=== PATIENT | male | born 1970 | race Caucasian/White ===

== ENCOUNTER 2016-09-27 09:37 | Emergency (ER) | payer MEDICARE, MEDICAID ==
[~2016-09-27] VITALS: Ht 177.8 cm; Wt 104.3 kg
[~2016-09-27 09:37] MED LIST: AMOX875T PO; CLON1TAB3 PO; CRESTOR20 MG PO; FENO135C2 PO; HYDR10TA2 PO; MECL25TA3 PO; METF-620 PO; PROAIR HFA8.5 GM IH; QUET400T6 PO; VALS160T3 PO
[2016-09-27] MEDS ORDERED: ONDANSETRON PF 4 MG/2 ML VIAL. IV ONE (10:30)
[2016-09-27] MEDS ORDERED: IV NORMAL SALINE 1000ML BAG 1,000 ML IV SCH (10:30)
[2016-09-27] MEDS ORDERED: FAMOTIDINE 20 MG/2 ML VIAL IVP ONE (10:30)
[2016-09-27 10:35] LABS: BILIRUBIN,URINE NEGATIVE (NEG); GLUCOSE,URINE NEGATIVE (NEG); NITRITE,URINE NEGATIVE (NEG); PROTEIN,URINE NEGATIVE (NEG-TRACE); UROBILINOGEN,URINE 0.2 mg/dL (0.2 mg/dL)
[2016-09-27 10:40] LABS: BARBITURATES NEG (NEG); BENZODIAZEPINES POS (NEG); CANNABINOIDS NEG (NEG); COCAINE NEG (NEG); METHADONE NEG (NEG); OPIATES POS (NEG); PHENCYCLIDINE NEG (NEG)
[2016-09-27 10:42] LABS: BACTERIA,URINE 0 /HPF (0-FEW); RBC,URINE 0 /HPF (0-2); SQUAMOUS EPITHELIAL CELL,UR OCC /LPF; WBC,URINE 0 /HPF (0-4)
[2016-09-27 10:43] LABS: BASO # 0.1 x10^3/uL (0.0-0.2); BASO % 1 % (0-3); EOS % 3 % (0-3); HEMATOCRIT 42.4 % (39.0-53.0); HEMOGLOBIN 14.6 g/dL (13.0-17.5); LYMPH # 1.8 x10^3/uL (1.0-4.8); LYMPH % 22 % (24-48); MEAN CORPUSCULAR HEMOGLOBIN 30 pg (25-35); MEAN CORPUSCULAR HGB CONC 35 g/dL (31-37); MEAN CORPUSCULAR VOLUME 87 fL (79-100); MONO % 4 % (0-9); NEUT % 70 % (31-73); PLATELET COUNT 274 x10^3/uL (140-400); RED BLOOD COUNT 4.89 x10^6/uL (4.30-5.70); RED CELL DISTRIBUTION WIDTH 13.4 % (11.5-14.5); WHITE BLOOD COUNT 8.6 x10^3/uL (4.0-11.0)
[2016-09-27 10:49] LABS: PROTHROMBIN TIME PATIENT 12.4 SEC (11.7-14.0)
[2016-09-27 10:51] LABS: CALCIUM 9.1 mg/dL (8.5-10.1); CREATININE 1.1 mg/dL (0.7-1.3); GFR 72.4; POTASSIUM 3.4 mmol/L (3.5-5.1)
[2016-09-27 10:56] LABS: ALBUMIN 3.5 g/dL (3.4-5.0); TOTAL BILIRUBIN 0.2 mg/dL (0.2-1.0); TOTAL PROTEIN 6.9 g/dL (6.4-8.2)
[2016-09-27 11:15] LABS: CKMB MASS 1.9 ng/mL (0.0-3.6)
--- NOTE | 2016-09-27 11:15 | EKG ---
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
[2016-09-27 13:21] LABS: NEG OBC FOB NEG; POS OBC FOB POS
[2016-09-27 13:56] VITALS: BP 161/77
--- NOTE | 2016-09-27 13:57 | RAD ---
Indication: Right upper quadrant pain. The pancreas, aorta and IVC are unremarkable. The liver demonstrates diffuse increased echogenicity consistent with fatty infiltration. The liver is normal in size. No mass is identified. The gallbladder is without stones or sludge. No wall thickening or pericholecystic fluid is seen. No biliary ductal dilatation is identified. The spleen is normal in size and contains multiple granulomas. The kidneys are unremarkable. There is no ascites. Impression: Fatty infiltration of the liver. There is no evidence of cholelithiasis or acute cholecystitis.
--- NOTE | 2016-09-27 14:02 | PHYS DOC ---
Past Medical History Past Medical History: Anxiety, Asthma, Depression, Diabetes-Type II, High Cholesterol, Hypertension, Schizophrenia Additional Past Medical Histor: neuropathy Past Surgical History: No Surgical History Additional Past Surgical Histo: metal removed from finger Alcohol Use: None Drug Use: None Adult General Chief Complaint Chief Complaint: BLOODY STOOL HPI HPI Patient is a 46 year old male with history of diabetes type 2, hypertension, high cholesterol, asthma, depression, who presents today with intermittent episodes of blood in his stool for the last 6 months. Patient states the last time he had bloody stools was yesterday. He states today he had a normal bowel movement with no blood. Patient's also complaining of a slight right upper quadrant abdominal pain. Patient denies any nausea vomiting. Denies any chance he is constipated, he is a smoker. PCP is Dr. Galvez Review of Systems Review of Systems Constitutional: Denies fever or chills [] Eyes: Denies change in visual acuity, redness, or eye pain [] HENT: Denies nasal congestion or sore throat [] Respiratory: Denies cough or shortness of breath [] Cardiovascular: No additional information not addressed in HPI [] GI: Right upper quadrant abdominal pain, bloody stools diarrhea [] : Denies dysuria or hematuria [] Musculoskeletal: Denies back pain or joint pain [] Integument: Denies rash or skin lesions [] Neurologic: Denies headache, focal weakness or sensory changes [] Endocrine: Denies polyuria or polydipsia [] Current Medications Current Medications Current Medications Medications (Trade) Dose Ordered Sig/Sorin Start Time Stop Time Status Last Admin Dose Admin Famotidine (Pepcid) 20 mg 1X ONCE 09/27/16 10:30 09/27/16 10:31 DC 09/27/16 10:31 20 MG Ondansetron HCl (Zofran) 4 mg 1X ONCE 09/27/16 10:30 09/27/16 10:31 DC 09/27/16 10:30 4 MG Sodium Chloride 1,000 ml @ 100 mls/hr Q10H 09/27/16 10:30 09/27/16 14:24 DC 09/27/16 10:31 100 MLS/HR Allergies Allergies Allergies Coded Allergies Type Severity Reaction Last Updated Verified No Known Drug Allergies 06/14/15 No Physical Exam Physical Exam Constitutional: Well developed, well nourished, no acute distress, non-toxic appearance. [] HENT: Normocephalic, atraumatic, bilateral external ears normal, oropharynx moist, no oral exudates, nose normal. [] Eyes: PERRLA, EOMI, conjunctiva normal, no discharge. [] Neck: Normal range of motion, no tenderness, supple, no stridor. [] Cardiovascular:Heart rate regular rhythm, no murmur [] Lungs & Thorax: Bilateral breath sounds clear to auscultation [] Abdomen: Rounded abdomen. Bowel sounds normal, soft, no tenderness, no masses, no pulsatile masses. [] Rectal exam External rectum appears normal. No external or internal hemorrhoids noted. Skin: Warm, dry, no erythema, no rash. [] Back: No tenderness, no CVA tenderness. [] Extremities: No tenderness, no cyanosis, no clubbing, ROM intact, no edema. [] Neurologic: Alert and oriented X 3, normal motor function, normal sensory function, no focal deficits noted. [] Psychologic: Affect normal, judgement normal, mood normal. [] Current Patient Data Vital Signs Vital Signs Date Time Temp Pulse Resp B/P (MAP) Pulse Ox O2 Delivery O2 Flow Rate FiO2 09/27/16 13:56 70 20 161/77 (105) 91 09/27/16 11:26 Room Air 09/27/16 09:58 98.0 98.0 Lab Values Laboratory Tests Test 09/27/16 10:25 09/27/16 13:00 White Blood Count 8.6 x10^3/uL (4.0-11.0) Red Blood Count 4.89 x10^6/uL (4.30-5.70) Hemoglobin 14.6 g/dL (13.0-17.5) Hematocrit 42.4 % (39.0-53.0) Mean Corpuscular Volume 87 fL (79-100) Mean Corpuscular Hemoglobin 30 pg (25-35) Mean Corpuscular Hemoglobin Concent 35 g/dL (31-37) Red Cell Distribution Width 13.4 % (11.5-14.5) Platelet Count 274 x10^3/uL (140-400) Neutrophils (%) (Auto) 70 % (31-73) Lymphocytes (%) (Auto) 22 % (24-48) L Monocytes (%) (Auto) 4 % (0-9) Eosinophils (%) (Auto) 3 % (0-3) Basophils (%) (Auto) 1 % (0-3) Neutrophils # (Auto) 6.1 x10^3uL (1.8-7.7) Lymphocytes # (Auto) 1.8 x10^3/uL (1.0-4.8) Monocytes # (Auto) 0.3 x10^3/uL (0.0-1.1) Eosinophils # (Auto) 0.3 x10^3/uL (0.0-0.7) Basophils # (Auto) 0.1 x10^3/uL (0.0-0.2) Prothrombin Time 12.4 SEC (11.7-14.0) Prothrombin Time INR 1.0 (0.8-1.1) PTT 28 SEC (24-38) Urine Collection Type Unknown Urine Color Yellow Urine Clarity Clear Urine pH 6.0 Urine Specific [place] <=1.005 Urine Protein Negative mg/dL (NEG-TRACE) Urine Glucose (UA) Negative mg/dL (NEG) Urine Ketones (Stick) Negative mg/dL (NEG) Urine Blood Negative (NEG) Urine Nitrite Negative (NEG) Urine Bilirubin Negative (NEG) Urine Urobilinogen Dipstick 0.2 mg/dL (0.2 mg/dL) Urine Leukocyte Esterase Negative (NEG) Urine RBC 0 /HPF (0-2) Urine WBC 0 /HPF (0-4) Urine Squamous Epithelial Cells Occ /LPF Urine Bacteria 0 /HPF (0-FEW) Urine Mucus Slight /LPF Sodium Level 140 mmol/L (136-145) Potassium Level 3.4 mmol/L (3.5-5.1) L Chloride Level 104 mmol/L (98-107) Carbon Dioxide Level 27 mmol/L (21-32) Anion Gap 9 (6-14) Blood Urea Nitrogen 6 mg/dL (8-26) L Creatinine 1.1 mg/dL (0.7-1.3) Estimated GFR (Cockcroft-Gault) 72.4 BUN/Creatinine Ratio 5 (6-20) L Glucose Level 175 mg/dL (70-99) H Calcium Level 9.1 mg/dL (8.5-10.1) Total Bilirubin 0.2 mg/dL (0.2-1.0) Aspartate Amino Transferase (AST) 17 U/L (15-37) Alanine Aminotransferase (ALT) 34 U/L (16-63) Alkaline Phosphatase 79 U/L (46-116) Creatine Kinase 150 U/L (39-308) Creatine Kinase MB (Mass) 1.9 ng/mL (0.0-3.6) Creatine Kinase MB Relative Index 1.3 % (0-4) Troponin I Quantitative < 0.017 ng/mL (0.000-0.055) Total Protein 6.9 g/dL (6.4-8.2) Albumin 3.5 g/dL (3.4-5.0) Albumin/Globulin Ratio 1.0 (1.0-1.7) Lipase 120 U/L (73-393) Urine Opiates Screen Pos (NEG) Urine Methadone Screen Neg (NEG) Urine Barbiturates Neg (NEG) Urine Phencyclidine Screen Neg (NEG) Urine Amphetamine/Methamphetamine Neg (NEG) Urine Benzodiazepines Screen Pos (NEG) Urine Cocaine Screen Neg (NEG) Urine Cannabinoids Screen Neg (NEG) Ethyl Alcohol Level < 10 mg/dL (0-10) Urine Ethyl Alcohol Neg (NEG) Stool Occult Blood Negative (NEG) Laboratory Tests 09/27/16 10:25 Laboratory Tests 09/27/16 10:25 EKG EKG 10:[address] Cuevas sinus rate them, heart rate 75, QRS interval 98, no STEMI. [] Radiology/Procedures Radiology/Procedures []PROCEDURE: ABDOMEN COMPLETE Indication: Right upper quadrant pain. The pancreas, aorta and IVC are unremarkable. The liver demonstrates diffuse increased echogenicity consistent with fatty infiltration. The liver is normal in size. No mass is identified. The gallbladder is without stones or sludge. No wall thickening or pericholecystic fluid is seen. No biliary ductal dilatation is identified. The spleen is normal in size and contains multiple granulomas. The kidneys are unremarkable. There is no ascites. Impression: Fatty infiltration of the liver. There is no evidence of cholelithiasis or acute cholecystitis. DICTATED and SIGNED BY: IRMA DURAND MD DATE: 09/27/16 9200 CC: CYRUS GALVEZ MD; BEREKET CALIXTO BUSINESS INTELLIGENCE DIRECTOR; NON,STAFF ~ Course & Med Decision Making Course & Med Decision Making Pertinent Labs and Imaging studies reviewed. (See chart for details) Patient is in the ED with complaints of bloody stools for the last 6 months. He states this has been going on intermittently for. He states his last bowel movement this morning was normal with no blood. He is also complaining of right upper quadrant abdominal pain. Patient labs are normal including CBC CMP and cardiac workup. Abdominal ultrasound is negative for any acute findings. Hemoccult is negative. He was discharged with instructions to follow-up with his own PCP next week. He was encouraged to consider smoking cessation. He was provided return precautions and discharged in stable condition. Dragon Disclaimer Dragon Disclaimer This electronic medical record was generated, in whole or in part, using a voice recognition dictation system. Departure Departure Impression: Primary Impression: Melena Additional Impressions: Smoking addiction Abdominal pain Disposition: HOME, SELF-CARE Condition: STABLE Referrals: CYRUS GALVEZ MD (PCP) Call your doctor tomorrow and set up a follow-up appointment Patient Instructions: Abdominal Pain Additional Instructions: You were seen for abdominal pain and bloody stools. Your work up in the emergency room is negative. Follow-up with your own doctor in the next 7 days. Try to call his office tomorrow and get a follow-up appointment. Problem Qualifiers Additional Impressions: Abdominal pain Abdominal location: right upper quadrant Qualified Codes: R10.11 - Right upper quadrant pain PRASADTRURadhaBEREKET BACON September 27, 2016 14:02
== END 2016-09-27 14:18 | disposition home or self-care (01) ==
LOC: ER 09:37
DX: K92.1 Melena (principal); F17.200 Nicotine dependence, unspecified, uncomplicated; R10.11 Right upper quadrant pain; I10 Essential (primary) hypertension; E78.00 Pure hypercholesterolemia, unspecified; J45.909 Unspecified asthma, uncomplicated; F32.9 Major depressive disorder, single episode, unspecified; F41.9 Anxiety disorder, unspecified; F20.9 Schizophrenia, unspecified; E11.40 Type 2 diabetes mellitus with diabetic neuropathy, unspecified
CPT/HCPCS: 36415; 76700; 80053; 80305; 80320; 81001; 82274; 82553; 83690; 84484; 85027; 85610; 85730; 86850; 86900; 86901; 93005; 96361; 96374; 96375; 99285; J2405; J7030; S0028; G0480; G0481

== ENCOUNTER 2017-07-28 23:55 | Inpatient (IN) | payer MEDICARE, MEDICAID ==
[2017-07-29 00:20] LABS: ADD MAN DIFF? NO
[2017-07-29 00:20] LABS: POC GLUCOSE 121 mg/dL (70-99)
[2017-07-29 00:29] LABS: BASO # 0.1 x10^3/uL (0.0-0.2); BASO % 1 % (0-3); EOS # 0.4 x10^3/uL (0.0-0.7); EOS % 4 % (0-3); HEMATOCRIT 45.1 % (39.0-53.0); HEMOGLOBIN 15.5 g/dL (13.0-17.5); LYMPH # 3.5 x10^3/uL (1.0-4.8); LYMPH % 34 % (24-48); MEAN CORPUSCULAR HEMOGLOBIN 29 pg (25-35); MEAN CORPUSCULAR HGB CONC 34 g/dL (31-37); MEAN CORPUSCULAR VOLUME 85 fL (79-100); MONO # 0.7 x10^3/uL (0.0-1.1); MONO % 7 % (0-9); NEUT # 5.7 x10^3uL (1.8-7.7); NEUT % 55 % (31-73); PLATELET COUNT 298 x10^3/uL (140-400); RED BLOOD COUNT 5.31 x10^6/uL (4.30-5.70); WHITE BLOOD COUNT 10.3 x10^3/uL (4.0-11.0)
[2017-07-29 00:46] LABS: ALBUMIN 3.8 g/dL (3.4-5.0); ALK PHOS 78 U/L (46-116); ALT (SGPT) 23 U/L (16-63); ANION GAP 12 (6-14); AST (SGOT) 13 U/L (15-37); BLOOD UREA NITROGEN 6 mg/dL (8-26); BUN/CREATININE RATIO 5 (6-20); CALCIUM 9.5 mg/dL (8.5-10.1); CARBON DIOXIDE 28 mmol/L (21-32); CHLORIDE 100 mmol/L (98-107); CREATININE 1.1 mg/dL (0.7-1.3); GFR 72.1; GLUCOSE 135 mg/dL (70-99); MAGNESIUM 1.7 mg/dL (1.8-2.4); SODIUM 140 mmol/L (136-145); TOTAL BILIRUBIN 0.3 mg/dL (0.2-1.0); TOTAL PROTEIN 7.5 g/dL (6.4-8.2)
[2017-07-29 00:48] LABS: POTASSIUM 2.8 mmol/L (3.5-5.1)
[2017-07-29 00:49] LABS: TROPONINI < 0.017 ng/mL (0.000-0.055)
[2017-07-29] MEDS: POTASSIUM CHLORIDE 20 MEQ TABLET.ER. PO ×3 (01:18→16:31)
[2017-07-29 01:35] LABS: BARBITURATES NEG (NEG); BENZODIAZEPINES POS (NEG); CANNABINOIDS NEG (NEG); COCAINE NEG (NEG); METHADONE NEG (NEG); OPIATES POS (NEG); PHENCYCLIDINE NEG (NEG)
[2017-07-29 01:41] LABS: AMPHETAMINE/METHAMPHETAMINE NEG (NEG); ETHANOL, URINE NEG (NEG)
[2017-07-29] MEDS ORDERED: ONDANSETRON PF 4 MG/2 ML VIAL. IV (03:00)
[2017-07-29] MEDS: LORazepam 0.5 MG TABLET PO (03:52)
[2017-07-29 07:32] LABS: POC GLUCOSE 131 mg/dL (70-99)
[2017-07-29] MEDS: HYDROcodone/APAP 5/325MG 1 TAB TABLET PO ×2 (08:06→21:57)
[2017-07-29] MEDS: GABAPENTIN 300 MG CAPSULE. PO ×3 (08:07→21:57)
[2017-07-29] MEDS: diazePAM 5 MG TABLET PO (08:07)
[2017-07-29] MEDS: METOPROLOL TART IMMED RELEASE 25 MG TABLET. PO ×2 (08:07→21:57)
[2017-07-29] MEDS: LINAGLIPTIN 5 MG TABLET PO (08:51)
[2017-07-29] MEDS: LOSARTAN POTASSIUM 50 MG TABLET. PO (08:51)
[2017-07-29] MEDS: ALBUTEROL SULFATE 2.5 MG/3 ML NEBU. NEB (09:25)
[2017-07-29] MEDS: QUEtiapine 50 MG TAB.ER.24H. PO ×2 (11:19→22:32)
[2017-07-29] MEDS: GADOBUTROL 10 MMOL/10 ML VIAL IV (12:01)
[2017-07-29 12:22] LABS: POC GLUCOSE 122 mg/dL (70-99)
[2017-07-29] MEDS ORDERED: DEXTROSE 50% 25 GM / 50ML DISP.SYRIN. IV (13:15)
[2017-07-29] MEDS: INSULIN ASPART 300 UNITS/3 ML INSULN.PEN SQ ×2 (13:30→18:20)
[2017-07-29] MEDS: ASPIRIN 325 MG TABLET PO (13:52)
[2017-07-29 14:07] LABS: THYROID STIM HORMONE (TSH) 1.901 uIU/mL (0.358-3.74)
[2017-07-29 21:51] LABS: POC GLUCOSE 195 mg/dL (70-99)
[2017-07-29 21:54] LABS: POC GLUCOSE 92 mg/dL (70-99)
[2017-07-29] MEDS: ATORVASTATIN CALCIUM 40 MG TABLET. PO (21:57)
[2017-07-30 04:14] LABS: ADD MAN DIFF? NO
[2017-07-30 04:22] LABS: BASO % 0 % (0-3); EOS # 0.3 x10^3/uL (0.0-0.7); EOS % 3 % (0-3); HEMATOCRIT 42.9 % (39.0-53.0); HEMOGLOBIN 14.5 g/dL (13.0-17.5); LYMPH # 3.1 x10^3/uL (1.0-4.8); LYMPH % 33 % (24-48); MEAN CORPUSCULAR HEMOGLOBIN 29 pg (25-35); MEAN CORPUSCULAR HGB CONC 34 g/dL (31-37); MEAN CORPUSCULAR VOLUME 85 fL (79-100); MONO # 0.6 x10^3/uL (0.0-1.1); MONO % 6 % (0-9); NEUT # 5.5 x10^3uL (1.8-7.7); NEUT % 58 % (31-73); PLATELET COUNT 274 x10^3/uL (140-400); RED BLOOD COUNT 5.05 x10^6/uL (4.30-5.70); WHITE BLOOD COUNT 9.6 x10^3/uL (4.0-11.0)
[2017-07-30 05:00] LABS: ANION GAP 11 (6-14); BLOOD UREA NITROGEN 7 mg/dL (8-26); CALCIUM 9.4 mg/dL (8.5-10.1); CARBON DIOXIDE 26 mmol/L (21-32); CHLORIDE 104 mmol/L (98-107); CHOLESTEROL 131 mg/dL (0-200); CREATININE 0.9 mg/dL (0.7-1.3); GFR 90.8; GLUCOSE 137 mg/dL (70-99); HDLC 23 mg/dL (40-60); LDLC 42 mg/dL (0-100); NON-HDL CHOLESTEROL 108 mg/dL (0-129); POTASSIUM 3.1 mmol/L (3.5-5.1); SODIUM 141 mmol/L (136-145); TRIGLYCERIDES 328 mg/dL (0-150); VLDLC 66 mg/dL (0-40)
[2017-07-30 05:20] LABS: CHOLESTEROL/HDL RATIO 5.7
[2017-07-30] MEDS: ALBUTEROL SULFATE 2.5 MG/3 ML NEBU. NEB (06:54)
[2017-07-30 07:33] LABS: POC GLUCOSE 178 mg/dL (70-99)
[2017-07-30 08:54] LABS: VITAMIN-B12 258 pg/mL (247-911)
[2017-07-30] MEDS: LOSARTAN POTASSIUM 50 MG TABLET. PO (09:27)
[2017-07-30] MEDS: LINAGLIPTIN 5 MG TABLET PO (09:27)
[2017-07-30] MEDS: diazePAM 5 MG TABLET PO (09:27)
[2017-07-30] MEDS: HYDROcodone/APAP 5/325MG 1 TAB TABLET PO (09:27)
[2017-07-30] MEDS: ASPIRIN 325 MG TABLET PO (09:27)
[2017-07-30] MEDS: METOPROLOL TART IMMED RELEASE 25 MG TABLET. PO (09:28)
[2017-07-30] MEDS: GABAPENTIN 300 MG CAPSULE. PO ×2 (09:28→12:40)
[2017-07-30] MEDS: INSULIN ASPART 300 UNITS/3 ML INSULN.PEN SQ ×2 (09:41→12:33)
[2017-07-30] MEDS: QUEtiapine 50 MG TAB.ER.24H. PO (09:55)
[2017-07-30 11:59] LABS: POC GLUCOSE 184 mg/dL (70-99)
[2017-07-30] MEDS: POTASSIUM CHLORIDE 20 MEQ TABLET.ER. PO (12:40)
[2017-07-30] MEDS ORDERED: POTASSIUM CHLORIDE 20 MEQ TABLET.ER. PO (16:00)
== END 2017-07-30 13:08 | disposition home or self-care (01) | DRG 66 ==
LOC: ER 23:55 → 6 SOUTH 07-29 01:46
PROVIDERS: Internal Medicine
DX: I63.412 Cerebral infarction due to embolism of left middle cerebral artery (principal); E11.40 Type 2 diabetes mellitus with diabetic neuropathy, unspecified; F20.9 Schizophrenia, unspecified; E78.5 Hyperlipidemia, unspecified; E87.6 Hypokalemia; I10 Essential (primary) hypertension; J32.0 Chronic maxillary sinusitis; F41.9 Anxiety disorder, unspecified; F32.9 Major depressive disorder, single episode, unspecified; F17.210 Nicotine dependence, cigarettes, uncomplicated; J45.909 Unspecified asthma, uncomplicated; Z79.82 Long term (current) use of aspirin; Z79.899 Other long term (current) drug therapy; Z83.3 Family history of diabetes mellitus; Z82.49 Family history of ischemic heart disease and other diseases of the circulatory system; Z71.6 Tobacco abuse counseling
CPT/HCPCS: 36415; 70450; 70553; 71045; 80048; 80053; 80061; 80307; 82607; 82962; 83735; 84443; 84484; 85025; 92610-GN; 93005; 93880; 94640; 94760; 97161-GP; 97165-GO; A9585; C8929; J1815; J7613

== ENCOUNTER 2017-08-01 21:45 | Emergency (ER) | payer MEDICARE ==
[2017-08-01] MEDS: IV NORMAL SALINE 1000ML BAG 1,000 ML IV (22:00)
[2017-08-01 22:04] LABS: ADD MAN DIFF? NO
[2017-08-01 22:06] LABS: BASO # 0.1 x10^3/uL (0.0-0.2); BASO % 1 % (0-3); EOS # 0.2 x10^3/uL (0.0-0.7); EOS % 2 % (0-3); HEMATOCRIT 43.6 % (39.0-53.0); HEMOGLOBIN 14.9 g/dL (13.0-17.5); LYMPH # 2.7 x10^3/uL (1.0-4.8); LYMPH % 22 % (24-48); MEAN CORPUSCULAR HEMOGLOBIN 30 pg (25-35); MEAN CORPUSCULAR HGB CONC 34 g/dL (31-37); MEAN CORPUSCULAR VOLUME 86 fL (79-100); MONO # 0.7 x10^3/uL (0.0-1.1); MONO % 6 % (0-9); NEUT # 8.8 x10^3uL (1.8-7.7); NEUT % 70 % (31-73); PLATELET COUNT 263 x10^3/uL (140-400); RED BLOOD COUNT 5.06 x10^6/uL (4.30-5.70); RED CELL DISTRIBUTION WIDTH 14.3 % (11.5-14.5); WHITE BLOOD COUNT 12.6 x10^3/uL (4.0-11.0)
[2017-08-01 22:57] LABS: ANION GAP 8 (6-14); BLOOD UREA NITROGEN 6 mg/dL (8-26); CALCIUM 9.5 mg/dL (8.5-10.1); CARBON DIOXIDE 28 mmol/L (21-32); CHLORIDE 104 mmol/L (98-107); CREATININE 0.9 mg/dL (0.7-1.3); GFR 90.8; GLUCOSE 117 mg/dL (70-99); POTASSIUM 3.4 mmol/L (3.5-5.1); SODIUM 140 mmol/L (136-145)
[2017-08-01 23:08] LABS: TROPONINI < 0.017 ng/mL (0.000-0.055)
[2017-08-01] MEDS: ALPRAZolam 0.5 MG TABLET PO (23:44)
== END 2017-08-01 23:49 | disposition home or self-care (01) ==
LOC: ER 21:45
DX: R20.2 Paresthesia of skin (principal); F41.9 Anxiety disorder, unspecified; F45.8 Other somatoform disorders; J45.909 Unspecified asthma, uncomplicated; F32.9 Major depressive disorder, single episode, unspecified; E11.40 Type 2 diabetes mellitus with diabetic neuropathy, unspecified; E78.00 Pure hypercholesterolemia, unspecified; I10 Essential (primary) hypertension; F20.9 Schizophrenia, unspecified; Z86.73 Personal history of transient ischemic attack (TIA), and cerebral infarction without residual deficits
CPT/HCPCS: 36415; 70450; 71045; 80048; 84484; 85025; 93005; 96360; 96361; 99285-25; J7030

== ENCOUNTER 2017-11-14 21:25 | Emergency (ER) | payer MEDICARE ==
[2017-11-14] MEDS: IPRATRPIUM/ALBUTEROL 0.5/2.5MG 3 ML NEBU. NEB ×2 (21:54→23:36)
[2017-11-14] MEDS: methylPREDNISolone SOD SUCC PF 125 MG/2 ML VIAL. IV (22:00)
[2017-11-14] MEDS: IV NORMAL SALINE 1000ML BAG 1,000 ML IV (22:00)
[2017-11-14 22:03] LABS: ADD MAN DIFF? NO
[2017-11-14 22:06] LABS: BASO # 0.1 x10^3/uL (0.0-0.2); BASO % 1 % (0-3); EOS # 0.1 x10^3/uL (0.0-0.7); EOS % 1 % (0-3); HEMATOCRIT 38.9 % (39.0-53.0); HEMOGLOBIN 13.2 g/dL (13.0-17.5); LYMPH % 10 % (24-48); MEAN CORPUSCULAR HEMOGLOBIN 30 pg (25-35); MEAN CORPUSCULAR HGB CONC 34 g/dL (31-37); MEAN CORPUSCULAR VOLUME 88 fL (79-100); MONO # 0.7 x10^3/uL (0.0-1.1); MONO % 6 % (0-9); NEUT # 8.3 x10^3uL (1.8-7.7); NEUT % 82 % (31-73); PLATELET COUNT 291 x10^3/uL (140-400); RED BLOOD COUNT 4.41 x10^6/uL (4.30-5.70); WHITE BLOOD COUNT 10.2 x10^3/uL (4.0-11.0)
[2017-11-14 22:22] LABS: ANION GAP 11 (6-14); BLOOD UREA NITROGEN 7 mg/dL (8-26); BUN/CREATININE RATIO 5 (6-20); CALCIUM 9.6 mg/dL (8.5-10.1); CARBON DIOXIDE 26 mmol/L (21-32); CHLORIDE 99 mmol/L (98-107); CREATININE 1.4 mg/dL (0.7-1.3); GFR 54.6; GLUCOSE 120 mg/dL (70-99); POTASSIUM 3.8 mmol/L (3.5-5.1); SODIUM 136 mmol/L (136-145)
[2017-11-14 22:24] LABS: LACTIC ACID 1.8 mmol/L (0.4-2.0)
[2017-11-14 22:26] LABS: TROPONINI < 0.017 ng/mL (0.000-0.055)
[2017-11-14 22:27] LABS: BILIRUBIN,URINE NEGATIVE (NEG); CLARITY,URINE CLEAR; GLUCOSE,URINE NEGATIVE (NEG); NITRITE,URINE NEGATIVE (NEG); PH,URINE 5.5; PROTEIN,URINE NEGATIVE (NEG-TRACE); UROBILINOGEN,URINE 0.2 mg/dL (0.2 mg/dL)
[2017-11-14 22:31] LABS: ALBUMIN/GLOBULIN RATIO 1.1 (1.0-1.7); ALK PHOS 89 U/L (46-116); ALT (SGPT) 27 U/L (16-63); AST (SGOT) 13 U/L (15-37); LIPASE 76 U/L (73-393); TOTAL BILIRUBIN 0.4 mg/dL (0.2-1.0); TOTAL PROTEIN 7.8 g/dL (6.4-8.2)
[2017-11-14 22:34] LABS: BACTERIA,URINE 0 /HPF (0-FEW); COLOR,URINE STRAW; RBC,URINE 0 /HPF (0-2); SQUAMOUS EPITHELIAL CELL,UR OCC /LPF; WBC,URINE 0 /HPF (0-4)
[2017-11-14 22:53] LABS: CKMB INDEX 0.7 % (0-4); CKMB MASS 1.2 ng/mL (0.0-3.6); CREATINE KINASE 166 U/L (39-308)
[2017-11-14 22:53] LABS: NT-PRO BNP 163 pg/mL (0-124)
[2017-11-15] MEDS: ACETAMINOPHEN 500 MG TABLET PO
== END 2017-11-15 00:44 | disposition home or self-care (01) ==
LOC: ER 11-15 00:44
DX: J44.1 Chronic obstructive pulmonary disease with (acute) exacerbation (principal); F41.9 Anxiety disorder, unspecified; J44.9 Chronic obstructive pulmonary disease, unspecified; F31.9 Bipolar disorder, unspecified; E11.9 Type 2 diabetes mellitus without complications; E78.00 Pure hypercholesterolemia, unspecified; I10 Essential (primary) hypertension; F17.210 Nicotine dependence, cigarettes, uncomplicated
CPT/HCPCS: 36415; 71046; 80053; 81001; 82553; 83605; 83690; 83880; 84484; 85025; 93005; 94640; 96374; 99285-25; J2930; J7030; J7620

== ENCOUNTER → 2021-05-10 | Outpatient (CLI) | payer MEDICARE ==
[2017-11-14 23:30] VITALS: BP 133/58
[~2021-05-10] MED LIST changes: +ALBU2.5V8 IH; +ALBU2.5V8 INH; +ASPI325T8 PO; +ATOR40TA59 PO; +AZIT250T6 PO; -CLON1TAB3 PO; +CLONAZEPAM1 MG PO; +DIAZ5TAB4 PO; +DICL100G54 TP; +GABA300C18 PO; +HYDR-2761 PO; +HYDR-2869 PO; +MECL-75 PO; -MECL25TA3 PO; -METF-620 PO; +METF10007 PO; +METO25TA4 PO; +POTA20TA4 PO; +PRED20TA PO; -PROAIR HFA8.5 GM IH; -QUET400T6 PO; +QUET400T7 PO; +REGADENOSON 0.4 MG/5 ML DISP.SYRIN. IV ONE; +SITA100T PO; +VALS320T13 PO
--- NOTE | 2021-05-11 09:40 | RAD ---
MR#: [id number] Date of Study: 05/10/2021 Ordering Physician: ERNESTO WEEKS, Referring Physician: COSME SPARKS Tech: RT Chris (R) (N) APPROVED REPORT Test Type: Pharmacological Stress Nurse/Tech: Hao Nova RN Test Indications: Chest Pain, Dizziness Cardiac History: HTN, See EMR. Medications: ASA 325mg, See EMR. Medical History: DM, Smoker, Renal Ins., CVA x2, See EMR. Resting ECG: SR Resting Heart Rate: 67 bpm Resting Blood Pressure: 139/76mmHg Pretest Chest Pain: No chest pain Nurse/Tech Notes Lungs coarse throughout, heart tones regular. Consent: The procedure was explained to the patient in lay terms. Informed consent was witnessed. Ric eout was entered into [employer]. History and Stress Test performed by NATALIIA Baker Pharm. Details Pharmacologic stress testing was performed using 0.4mg per 5ml of regadenoson given intravenously ove r 7-10 seconds. Stress Symptoms Dyspnea POST EXERCISE Reason for Termination: Infusion complete Max HR: 112 bpm Max Blood Pressure: 159/77mmHg Blood Pressure response to exercise: Normal blood pressure response during stress. Heart Rate response to exercise: WNL Chest Pain: No. Arrhythmia: No. ST Change: No. INTERPRETATION Stress EKG Conclusion: The resting EKG shows a sinus rhythm and mild nonspecific ST segment changes. The stress EKG shows no significant changes from baseline. No EKG evidence of stress-induced ischemia. Imaging Protocol IMAGE PROTOCOL: Rest Tc-99m/stress Tc-99m 1 day Rest: Stress: Viability: Radiopharm.Tc99m WyozuahyaMj65s Sestamibi Dose10.5mCi 33mCi Duration 13min. 13min. Img Date 05/10/2021 05/10/2021 Inj-Img [id number]. 60min. Rest Admin Site:IV - Right AntecubitalAdministrator:RT Chris (R)(N) Stress Admin Site: IV - Right AntecubitalAdministrator: NATALIIA Baker STRESS DATA End Diast. Vol.109.0mlLVEDV index BSA50.0ml End Syst. Vol.35.0mlLVESV index BSA16.0ml Myocardial Uuwv946.0gEject. Qinatmpd57.0% Stress Scores Regional WT1.00Summed WT14.00 Regional WM0.00Summed WM2.00 LV Perfusion The stress scans show slight inferior wall thinning. The rest scans show slight inferior wall thinning. Nuclear imaging shows no reversible ischemia. Nuclear imaging shows fixed slight inferior wall thinning most consistent with a technical artifact. Wall Motion Left ventricular systolic function is normal with an ejection fraction of 68%. LV Perf. Quant 17 Seg. SSS0.00 17 Seg. SRS0.00 17 Seg. SDS0.00 Stress Defect Extent (% LAD)0.00Rest Defect Extent (% LAD)0.00Rev. Defect Extent (% LAD)0.00 Stress Defect Extent (% LCX) 5.00Rest Defect Extent (% LCX)0.00Rev. Defect Extent (% LCX)5.00 Stress Defect Extent (% RCA)0.00Rest Defect Extent (% RCA)0.00Rev. Defect Extent (% RCA)0.00 Stress Defect Extent (% PROSPER)0.90Rest Defect Extent (% PROSPER)0.00Rev. Defect Extent (% PROSPER)0.90 Conclusion 1. No EKG evidence of stress-induced ischemia. 2. Nuclear imaging shows no reversible ischemia. 3. Nuclear imaging shows slight fixed inferior wall thinning most consistent with a technical artifac t. 4. Normal left ventricular systolic function with an ejection fraction of 68%. 5. Moderately low risk Lexiscan nuclear stress test. Signed by : Ernesto Weeks MD Electronically Approved : 05/11/2021 09:39:58
== END ==
LOC: NM 14:43
PROVIDERS: ATTEND Internal Medicine Cardiovascular Disease
DX: R07.89 Other chest pain (principal)
CPT/HCPCS: 78452; 93017; A9500